=== PATIENT | female | born 1985 | race Caucasian/White ===

== ENCOUNTER 2022-10-31 06:36 | Emergency (ER) | payer SELFPAY ==
[2022-10-31] MEDS ORDERED: predniSONE 20 MG TAB ONE (08:01)
[2022-10-31] MEDS ORDERED: Clindamycin 150 MG CAP ONE (08:01)
== END 2022-10-31 07:52 | disposition home or self-care (01) ==
LOC: ERS 06:36
DX: K13.0 Diseases of lips (principal); I10 Essential (primary) hypertension; Z79.82 Long term (current) use of aspirin
CPT/HCPCS: 99283; J7512